=== PATIENT | male | born 1945 | race Caucasian/White ===

== ENCOUNTER 2021-05-30 04:45 | Emergency (ER) | payer MEDICARE ==
[~2021-05-30 04:45] MED LIST: ACCUPRIL10 MG PO; ADULT LOW DOSE81 MG PO; COLACE 100MG C100 MG PO; FLOVENT 440.088 GM/I INH; LIPITOR40 MG PO; MYRBETRIQ50 MG PO; NITROSTAT0.4 MG SL; OMEPRAZOLE40 MG PO; PANTOPRAZOLE SO40 MG PO; PLAVIX 75 MG TA75 MG PO; PRAMIPEXOLE DI0.5 MG PO; TOPROL XL 25 MG25 MG PO
[2021-05-30 05:37] LABS: RED BLOOD COUNT 4.66 M/UL (4.20-5.50); WHITE BLOOD COUNT 5.9 K/UL (4.5-11.0)
[2021-05-30 05:50] LABS: BUN/CREATININE RATIO 23 (0-10)
== END 2021-05-30 10:20 | disposition home or self-care (01) ==
LOC: ER1 04:45
PROVIDERS: Student in an Organized Health Care Education/Training Program
DX: R07.89 Other chest pain (principal); I25.10 Atherosclerotic heart disease of native coronary artery without angina pectoris; E78.5 Hyperlipidemia, unspecified; I10 Essential (primary) hypertension; Z95.5 Presence of coronary angioplasty implant and graft; Z79.82 Long term (current) use of aspirin; Z79.02 Long term (current) use of antithrombotics/antiplatelets; Z91.040 Latex allergy status
CPT/HCPCS: 71045; 80048; 82550; 82553; 84484; 85025; 85379; 93005; 96374; 96375; 99285; J1200; J2930; J7030; Q9967

== ENCOUNTER → 2021-07-04 | Day surgery (SDC) | payer MEDICARE ==
[~2021-07-04] MED LIST changes: +REPATHA SY140 MG/1 M SQ
== END | disposition home or self-care (01) ==
LOC: OR 07:53
PROVIDERS: Internal Medicine Gastroenterology
PROC: 0DB78ZX Excision of Stomach, Pylorus, Via Natural or Artificial Opening Endoscopic, Diagnostic (ICD-10-PCS; 2021-07-04)
PROC: 0DB68ZX Excision of Stomach, Via Natural or Artificial Opening Endoscopic, Diagnostic (ICD-10-PCS; 2021-07-04)
PROC: 0DB48ZX Excision of Esophagogastric Junction, Via Natural or Artificial Opening Endoscopic, Diagnostic (ICD-10-PCS; principal; 2021-07-04 12:05)
DX: K21.00 Gastro-esophageal reflux disease with esophagitis, without bleeding (principal); K31.7 Polyp of stomach and duodenum; K22.2 Esophageal obstruction; K31.89 Other diseases of stomach and duodenum; K44.9 Diaphragmatic hernia without obstruction or gangrene; I10 Essential (primary) hypertension; I25.2 Old myocardial infarction; E78.00 Pure hypercholesterolemia, unspecified; I25.10 Atherosclerotic heart disease of native coronary artery without angina pectoris; E78.5 Hyperlipidemia, unspecified; E66.3 Overweight; Z68.25 Body mass index [BMI] 25.0-25.9, adult; Z20.822 Contact with and (suspected) exposure to COVID-19; Z91.041 Radiographic dye allergy status; Z79.02 Long term (current) use of antithrombotics/antiplatelets; Z79.82 Long term (current) use of aspirin; Z79.51 Long term (current) use of inhaled steroids; Z79.899 Other long term (current) drug therapy; Z95.5 Presence of coronary angioplasty implant and graft
CPT/HCPCS: J2704; J7040

== ENCOUNTER → 2021-11-01 | Outpatient (CLI) | payer MEDICARE | LOC: KOH-I 11:54 | DX: K59.00 Constipation, unspecified (principal) | CPT/HCPCS: 74018 ==